=== PATIENT | female | born 2000 | race Caucasian/White ===

== ENCOUNTER 2022-05-16 12:41 | Emergency (ER) | payer BC ==
[~2022-05-16] VITALS: Ht 152.4 cm; Wt 58.1 kg
[2022-05-16 12:54] VITALS: BP_SYST 124
--- NOTE | 2022-05-16 14:20 | NUR ---
ER at bedside examining patient.
[2022-05-16] MEDS ORDERED: IBUPROFEN 800 MG TABLET PO ONE (14:30)
[2022-05-16] MEDS ORDERED: DICL20GE TP (15:23)
[2022-05-16] MEDS ORDERED: IBUP-1969 PO (15:23)
--- NOTE | 2022-05-16 15:23 | NUR ---
wrist brace with adducted thumb applied to pt's left hand. pms present before and after splint application
--- NOTE | 2022-05-16 16:45 | NUR ---
Patient given written and verbal discharge instructions and verbalizes understanding. ER MD discussed with patient the results and treatment provided. Patient in stable condition. ID arm band removed. Patient educated on pain management and to follow up with PMD. Opportunity for questions provided and answered. Medication side effect fact sheet provided.
[2022-05-16 19:09] VITALS: BP_SYST 124
== END 2022-05-16 19:09 | disposition home or self-care (01) ==
LOC: SED 12:41
DX: S63.601A Unspecified sprain of right thumb, initial encounter (principal); Z79.899 Other long term (current) drug therapy; X50.1XXA Overexertion from prolonged static or awkward postures, initial encounter; Y93.89 Activity, other specified; Y92.89 Other specified places as the place of occurrence of the external cause; Y99.8 Other external cause status
CPT/HCPCS: 73140-TC; 99283